=== PATIENT | female | born 1965 | race Caucasian/White ===

== ENCOUNTER 2016-12-05 07:34 | Day surgery (SDC) | payer BC ==
--- NOTE | ~2016-12-05 | EGD ---
EGD REPORT [facility] [address] [address] NAME: MARIANNE STROUD : 61 STATUS : REG [facility]#: [id number] AGE: 51 ADM/REG DATE : 12/05/16 MR#: [id number] REPORT SERV DATE: 12/05/16 DICTATED BY: LIAM ZIMMERMAN DATE: 12/05/16 REPORT STATUS : Draft TRANSCRIBED BY: [facility] DATE: 12/05/16 Endoscopy Center Patient Name: Marianne Stroud Date of : 1965 Attending MD: LIAM ZIMMERMAN MD Procedure Date No Time: 12/05/2016 Procedure: Upper GI endoscopy Indications: Epigastric abdominal pain, Nausea Referring MD: BRUCE MCCOLLUM MD Medicines: See the Anesthesia note for documentation of the administered medications Complications: No immediate complications. Procedure: Pre-Anesthesia Assessment: - ASA Grade Assessment: III - A patient with severe systemic disease. After obtaining informed consent, the endoscope was passed under direct vision. Throughout the procedure, the patient's blood pressure, pulse, and oxygen saturations were monitored continuously. The [facility] [id number] was introduced through the mouth, and advanced to the second part of duodenum. The upper GI endoscopy was accomplished without difficulty. The patient tolerated the procedure well. Findings: The 2nd part of the duodenum was normal. Biopsies were taken with a cold forceps for histology. Mild inflammation was found in the gastric antrum. Biopsies were taken with a cold forceps for histology. The cardia and gastric fundus were normal on retroflexion. Nodularity at GE Junction, Biopsies were taken with a cold forceps for histology. A small hiatus hernia was present. Ringed esophagus, Biopsies were taken with a cold forceps for histology in mid esophagus. Impression: - Normal 2nd part of the duodenum. Biopsied. - Gastritis. Biopsied. - Nodularity at GE Junction - Hiatus hernia. - Ringed esophagus Recommendation: - Patient has a contact number available for emergencies. The signs and symptoms of potential delayed complications were discussed with the patient. Return to EGD REPORT [address] [place]. [address] NAME: MARIANNE STROUD : 61 STATUS : REG [facility] PAT#: [id number] AGE: 51 ADM/REG DATE : 12/05/16 MR#: [id number] REPORT SERV DATE: 12/05/16 DICTATED BY: LIAM ZIMMERMAN DATE: 12/05/16 REPORT STATUS : Draft TRANSCRIBED BY: SEAT 4a DATE: 12/05/16 normal activities tomorrow. Written discharge instructions were provided to the patient. - Regular diet. - Continue present medications. - FOR YOUR BIOPSY RESULTS: Please go to [email or web address] and register to receive your results via the portal. Your biopsy results will be posted there in about 7 to 10 days. IF you do not see result in 10 days, call office. - Follow up with Dr Zimmerman or his nurse practitioner in 6 weeks Procedure Code(s): --- Professional --- 56284, Esophagogastroduodenoscopy, flexible, transoral; with biopsy, single or multiple Diagnosis Code(s): --- Professional --- K29.70, Gastritis, unspecified, without bleeding K44.9, Diaphragmatic hernia without obstruction or gangrene R10.13, Epigastric pain R11.0, Nausea CPT copyright 2013 [employer]. All rights reserved. The codes documented in this report are preliminary and upon certified medical records coder review may be revised to meet current compliance requirements. Liam Zimmerman MD LIAM ZIMMERMAN MD 12/05/2016 8:49 AM This report has been signed electronically. Number of Addenda: 0 Note Initiated On: 12/05/2016 8:31 AM Scope Withdrawal Time 0 hours 0 minutes 0 seconds [id number] [id number]
[~2016-12-05 07:34] MED LIST: ACET500CAP PO; ADVIL PO; ESTRA/NORETH1 TAB OR; GLUCOPHAGE1000 MG; GLUCOPHAGE1000 MG PO; GLUCOTRO10 PO; HEMOCYTE324 MG PO; IRON325 MG PO; JANUVIA100 MG PO; LEXAPRO5 MG PO; LOTENSIN HCT1 TA2 PO; LOTENSIN HCT1 TA3 PO; MOBIC15 MG PO; MOBIC7.5 PO; MULTIVIT/MIN PO; MULTIVITAMI1 PO; PROTONIX PO; SYN1 PO; TIMOLOL MAL0.25 % OPH; ULTRAM50 PO
== END 2016-12-05 23:59 | disposition home or self-care (01) ==
LOC: DMU 07:34
PROVIDERS: Internal Medicine Gastroenterology
PROC: 0DB58ZX Excision of Esophagus, Via Natural or Artificial Opening Endoscopic, Diagnostic (ICD-10-PCS; 2016-12-05)
PROC: 0DB68ZX Excision of Stomach, Via Natural or Artificial Opening Endoscopic, Diagnostic (ICD-10-PCS; 2016-12-05)
PROC: 0DB98ZX Excision of Duodenum, Via Natural or Artificial Opening Endoscopic, Diagnostic (ICD-10-PCS; principal; 2016-12-05 09:00)
DX: K29.50 Unspecified chronic gastritis without bleeding (principal); K44.9 Diaphragmatic hernia without obstruction or gangrene; I10 Essential (primary) hypertension; G47.30 Sleep apnea, unspecified; E11.9 Type 2 diabetes mellitus without complications; E03.9 Hypothyroidism, unspecified; M19.90 Unspecified osteoarthritis, unspecified site; Z96.653 Presence of artificial knee joint, bilateral; Z90.710 Acquired absence of both cervix and uterus; Z90.49 Acquired absence of other specified parts of digestive tract
CPT/HCPCS: 82962; 88305; A9270-GY; J2405

== ENCOUNTER 2016-12-18 13:29 | Observation (INO) | payer BC ==
--- NOTE | ~2016-12-18 | HP ---
History And Physical [id number] [facility] [place]. [address] NAME: MARIANNE LEVINE : [birth year] STATUS : ADM [facility] PAT#: [id number] AGE: 51 ADM/REG DATE : 12/18/16 MR#: [id number] REPORT SERV DATE: 12/19/16 DICTATED BY: HALIMA MADRID DATE: 12/19/16 REPORT STATUS : Draft TRANSCRIBED BY: MODL DATE: 12/19/16 DATE OF ADMISSION: 12/18/2016 CHIEF COMPLAINT: Chest pain. HISTORY OF PRESENT ILLNESS: This is a pleasant 51-year-old white female with a history of hypertension, diabetes mellitus type 2, along with celiac disease, and gastritis. She recently underwent an endoscopy with Dr. Zimmerman on 12/05/2016, at which time she was diagnosed with gastritis, GE junction nodularity, hiatal hernia, and ringed esophagus. She is to follow up in six weeks after that time with Dr. Zimmerman and take a PPI. She presented to the emergency department yesterday with precordial chest pain that occurred on Friday and again yesterday. This is vague chest pain that occurred at rest. It did radiate down her left arm. She reports this is associated with dyspnea, nausea, and diaphoresis. She has been chest pain free since prior to emergency department. She denies any exertional component to her symptoms. She denies any edema or palpitations. She reports she most recently had a stress test on 01/2014, which was normal, this was during a hospitalization for chest pain. PAST MEDICAL HISTORY: 1. Hypertension. 2. Diabetes mellitus type 2. 3. Obesity. 4. Hypothyroidism. 5. Untreated obstructive sleep apnea (the patient told that this may not need to be treated as she is in the process of losing weight). 6. Celiac disease. 7. Endometriosis. 8. Anemia. 9. Gastritis, ringed esophagus, nodularity at GE junction and hiatal hernia, all on EGD 12/05/[address] Zimmerman. 10.Arthritis. 11.Tongue lesion. PAST SURGICAL HISTORY: 1. Maxillofacial surgery, 1979. 2. Left ovarian cyst, 2000. 3. Laparoscopic cholecystectomy, 2010. 4. Left oophorectomy, 2013. 5. Wire removal from mandible, 2013. 6. Bilateral total knee arthroplasty, 06/2015. SOCIAL HISTORY: . Works as a clerical secretary. She denies any tobacco, alcohol, or illicit drug use. FAMILY HISTORY: Father with cancer and possibly a "heart issue." She does not have any History And Physical [address] [place]. [address] NAME: MARIANNE LEVINE : [birth year] STATUS : ADM Arsh PAT#: [id number] AGE: 51 ADM/REG DATE : 12/18/16 MR#: [id number] REPORT SERV DATE: 12/19/16 DICTATED BY: HALIMA MADRID DATE: 12/19/16 REPORT STATUS : Draft TRANSCRIBED BY: ZEB DATE: 12/19/16 further details. REVIEW OF SYSTEMS: As above per HPI, all other systems reviewed and negative. ALLERGIES: NO KNOWN DRUG ALLERGIES. HOME MEDICATIONS: List reviewed and is as follows: 1. Synthroid 100 mcg p.o. daily. 2. Metformin 1000 mg p.o. twice per day. 3. Glipizide 10 mg p.o. twice per day. 4. Januvia 100 mg p.o. daily. 5. Lexapro 5 mg p.o. every day at bedtime. 6. Benazepril and HCTZ 20/12.5 mg tablet one tablet p.o. daily. 7. Acetaminophen two tablets p.o. daily as needed. PHYSICAL EXAMINATION: VITAL SIGNS: Oxygen saturation 96% on room air. Height 4 feet and 11-3/4 inches, weight 200 pounds, and body mass index 39.4. She does note that she has doubled the breast cup size. Temperature 97.5, pulse 86, respiratory rate 20, blood pressure initially 153/91, most recently 126/63. GENERAL: Well-developed, well-nourished. Obese. In no apparent distress. HEENT: Head normocephalic. No xanthelasma. Sclera clear, anicteric. Moist mucous membranes without pallor. No lymphadenopathy. No deficits noted. NECK: Trachea midline. Supple. No thyromegaly, JVD, or bruits. RESPIRATORY: Unlabored respirations. Breath sounds clear bilaterally to posterior auscultation. No wheezes, rhonchi or crackles. CARDIOVASCULAR: Regular rate and rhythm. No murmur, rub, or gallop appreciated. No chest wall tenderness to palpation. ABDOMEN: Soft, nontender, and nondistended. Active bowel sounds auscultated x4 quadrants. No organomegaly and no masses. No aortic bruit. EXTREMITIES: DP/PT and radial pulses 2+ bilaterally. No clubbing, cyanosis, or edema. SKIN: Warm, dry, intact. No rash. Normal turgor. MUSCULOSKELETAL: Moves all extremities in bed without difficulty. NEURO/PSYCH: Alert and oriented x3 with no acute distress. Affect appropriate to current situation. LABORATORY DATA: BMP: Sodium 138, potassium 3.7, creatinine 0.66, glucose was elevated at 217. Magnesium 1.7. CBC: White blood cell count 8.1, hemoglobin 13.9, hematocrit 40.1, platelets 337. Troponin less than 0.02 x2. STUDIES: Chest x-ray: Lungs clear. Heart size normal. Question of safety pin in anterior chest wall. My addendum, please note that the patient reports that this safety pin was located on her bra. History And Physical [address] [address] NAME: MARIANNE LEVINE : 61 STATUS : ADM [facility] PAT#: [id number] AGE: 51 ADM/REG DATE : 12/18/16 MR#: [id number] REPORT SERV DATE: 12/19/16 DICTATED BY: HALIMA MADRID DATE: 12/19/16 REPORT STATUS : Draft TRANSCRIBED BY: ZEB DATE: 12/19/16 EKG: Personally interpreted, normal sinus rhythm, with no ischemia. Telemetry: Sinus rhythm. ASSESSMENT AND PLAN: 1. Substernal/precordial chest pain. Two negative troponins with EKG benign. I planned a cardiac PET given cardiac risk factors of hypertension, diabetes mellitus type 2, obesity. PET modality chosen because she does have doubled the breast size. If the stress test is low risk with no ischemia, then RN is to discharge the patient to home. She is to follow up with her primary care provider, Dr. Hernandez, in one week. 2. Hypertension. We will continue her blood pressure medications here. Her blood pressure was mildly elevated upon arrival. She reports it is better controlled at home. She will buy a blood pressure cuff after conferring with the patient. She will check her blood pressure daily, record, bring to PCP and follow up in one week. I defer any adjustment to medications to PCP. 3. Diabetes mellitus type 2. I will give sliding scale insulin level 1 while here. 4. Obesity. Continue weight loss. The patient reports she is attempting to lose weight at this time. 5. Gastritis. Follow up with Dr. Zimmerman. She has a followup appointment at approximately three weeks already scheduled post recent EGD on 12/05/2016. 6. Possible obstructive sleep apnea. I advised her to discuss further with her primary care provider as she was told that she might not need CPAP as she is losing weight. I did discuss the correlation with untreated sleep apnea and cardiovascular health including high blood pressure. The patient will be seen down in the stress testing area by rounding inventory control/shipping receiving for CPOU. JULIA/GAYATRIL Halima [place] NP / [id number] CC: Marianne Soares, MSN, AUTOMOTIVE PROJECT ENGINEER-BC Ruthie Hernandez M.D. Jason Zimmerman M.D.
[2016-12-18 14:03] LABS: BASOPHILS 0.1 %; BASOPHILS ABSOLUTE 0.01 10/3/uL (0.0-0.16); EOSINOPHILS 1.2 %; ER CBC TAT 0 Hrs 05 Mins; HEMATOCRIT 40.1 % (36.0-48.0); HEMOGLOBIN 13.9 g/dL (12.0-16.0); IMMATURE GRANULOCYTES 0.2 %; IMMATURE GRANULOCYTES ABSOLUTE 0.02 10/3/uL (0.0-0.11); LYMPHOCYTES 42.6 %; LYMPHOCYTES ABSOLUTE 3.43 10/3/uL (0.67-4.30); MEAN CORPUS HGB CONC 34.7 g/dL (32.0-36.0); MEAN CORPUSCULAR HEMOGLOB 30.5 pg (26.0-34.0); MONOCYTES 8.7 %; NEUTROPHILS 47.2 %; PLATELET COUNT 337 10/3/uL (150-400); RBC DISTRIBUTION WIDTH 12.8 % (12.0-16.0); RED CELL COUNT 4.56 10/6/uL (4.0-5.6); WHITE BLOOD CELLS 8.1 10/3/uL (4.5-10.5)
[2016-12-18 14:04] LABS: MANUAL DIFF NO %; MEAN CORPUSCULAR VOLUME 87.9 fL (80-100)
[2016-12-18 14:10] LABS: PROTIME (NOT ORD) 13.2 SEC (12.0-14.5)
[2016-12-18 14:17] LABS: BUN (BLOOD UREA NITROGEN) 10 MG/DL (6-23); CALCIUM, SERUM 9.9 MG/DL (8.5-10.4); CHEST PAIN PROFILE TAT 0 Hrs 19 Mins; CHLORIDE, SERUM 101 MMOL/L (96-112); CO2 (CARBON DIOXIDE) 26 MMOL/L (24-34); CREATININE 0.66 MG/DL (0.55-1.02); GFR AFRICAN AMERICAN 117 ML/MIN (>=60); GFR NON AFRICAN AMERICAN 101 ML/MIN (>=60); GLUCOSE, SERUM 217 MG/DL (60-99); POTASSIUM, SERUM 3.7 MMOL/L (3.5-5.3); SODIUM, SERUM 138 MMOL/L (135-148); TROPONIN I <0.02 NG/ML (<0.05)
[2016-12-18] MEDS ORDERED: ACET500CAP PO (20:00)
[2016-12-18] MEDS ORDERED: LOTENSIN HCT1 TA2 PO (20:00)
== END 2016-12-19 14:40 | disposition home or self-care (01) ==
LOC: ER 13:29 → SSU2 20:20
PROVIDERS: Emergency Medicine
DX: R07.9 Chest pain, unspecified (principal); I10 Essential (primary) hypertension; E11.9 Type 2 diabetes mellitus without complications; E66.9 Obesity, unspecified; E03.9 Hypothyroidism, unspecified; G47.33 Obstructive sleep apnea (adult) (pediatric); N80.9 Endometriosis, unspecified; K90.0 Celiac disease; D64.9 Anemia, unspecified; M19.90 Unspecified osteoarthritis, unspecified site; K29.70 Gastritis, unspecified, without bleeding
CPT/HCPCS: 71020; 78492; 80048; 82962; 83735; 84484; 85025; 85610; 85730; 93005; 93017; 99285; A9270-GY; A9555; G0378; J2785

== ENCOUNTER 2017-03-11 14:57 | Inpatient (IN) | payer BC ==
--- NOTE | ~2017-03-11 | OP ---
Record Of Operation [facility] [address] [place]. [address] NAME: LINDA LEVINE : 61 STATUS : ADM IN PAT#: [id number] AGE: 52 ADM/REG DATE : 03/11/17 MR#: [id number] REPORT SERV DATE: 03/13/17 DICTATED BY: NATALIO GOTTLIEB DATE: 03/13/17 REPORT STATUS : Draft TRANSCRIBED BY: MODPacheco DATE: 03/13/17 DATE OF PROCEDURE: 03/12/2017 PREOPERATIVE DIAGNOSES: Left knee hypertrophic synovium, questionable loose tibia. 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 PROCEDURE: Left total knee revision arthroplasty and complete synovectomy OUTSOLE CUTTER MACHINE: See chart. PROCEDURE IN DETAIL: The patient was taken to the operating room and placed supine on the table in normal fashion without incident. Spinal anesthetic was induced per the anesthesiologist and later became LMA. The left lower extremity was exsanguinated after sterile prep and drape. Tourniquet was inflated to 350. Sharp dissection was made through the old incision with electrocautery through the fat. Sharp quad-splitting approach was carried out. The patella was subluxed. Benign-appearing fluid was sent for cultures and Gram stain. Complete synovectomy was performed and what appeared to be an aseptic hypertrophic synovial reaction. The patella was seen to be just about loose. The tibial component was also loose. Femoral component had erosion between the cement and the bone. All components were removed with osteotomes. There was minimal bone loss. The cement was meticulously debrided. Sequential reamers were used in the femur and tibia to a 14 intramedullary guide, used to cut the proximal tibia and distal femur. A ruler was used to verify flexion and extension balance. The remaining cuts were used with an intramedullary guide on the femur. Granulation osteolytic tissue was meticulously debrided with a curette and rongeur. The patella was removed with an osteotome and cut with a saw and re-drilled with the patella drill guide. With trial components in place, there was excellent medial and lateral balance and excellent flexion and extension balance. All surfaces were copiously irrigated with pulsatile lavage. Vacuum-mixed cement premixed with antibiotic was pressurized in a doughy phase in the tibia. Tibial component placed, impacted, and excess cement removed. The cement was pressurized in the femur and placed on the posterior runners of the femoral component, which was placed, impacted, and excess cement removed. Knee was brought out in extension on a trial spacer. The cement was pressurized in patella. Patellar component placed, held with a clamp, and excess cement removed. Once all cement was hardened, the knee was taken to range of motion. Further extruded cement was removed with a small osteotome. The actual insert was then placed, impacted, checked to be sure it was sound and snug. The knee was taken through a full range of motion with excellent medial and lateral balance and excellent flexion and extension balance. The wound was closed in a layered fashion and dressed sterilely. The patient was awakened and taken to the postanesthesia care unit without incident. COMPLICATIONS: None. SPECIMENS: Complete synovium and cultures. Record Of Operation [id number] [facility] [place]. [address] NAME: LINDA LEVINE : 61 STATUS : ADM IN PAT#: [id number] AGE: 52 ADM/REG DATE : 03/11/17 MR#: [id number] REPORT SERV DATE: 03/13/17 DICTATED BY: NATALIO GOTTLIEB DATE: 03/13/17 REPORT STATUS : Draft TRANSCRIBED BY: ZEB DATE: 03/13/17 ESTIMATED BLOOD LOSS: Trace. WTB/ZEB Nadine Gottlieb M.D. / [id number] CC: Enrike Newton M.D.
--- NOTE | ~2017-03-11 | DS ---
Discharge Summary [facility] [address] [place]. [address] NAME: LINDA LEVINE : 61 STATUS : DIS IN PAT#: [id number] AGE: 52 ADM/REG DATE : 03/11/17 MR#: [id number] REPORT SERV DATE: 03/27/17 DICTATED BY: NATALIO GOTTLIEB DATE: 03/27/17 REPORT STATUS : Draft TRANSCRIBED BY: ZEB DATE: 03/27/17 Data Collection from hospitalization DISCHARGE DIAGNOSES: 1. 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 2. Diabetes. 3. Hypertension. 4. Obstructive sleep apnea. 5. Hypothyroidism. CONSULTATIONS: None. PROCEDURES PERFORMED: Left total knee revision arthroplasty and complete synovectomy on 03/12/2017. 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 Bone and soft tissue, left knee - chronic active synovitis bone with extensive medullary fibrosis and extensive histiocytic granuloma. Orthopedic hardware, left knee. MEDICATIONS: Lotensin one tablet daily, vitamin D 1000 units daily, vitamin B12 1000 mcg daily, Lexapro 5 mg daily, Glucotrol 10 mg twice a day, Dilaudid 2-4 mg every four hours as needed, levothyroxine 100 mcg daily, Glucophage 1000 mg with breakfast and supper, Januvia 100 mg daily, and Coumadin 4 mg daily. CONDITION AT DISCHARGE: Stable. DISPOSITION: The patient was discharged home on an 1800-calorie diabetic diet with activities as instructed. She would follow up with me two weeks following discharge. She would [facility] at [facility] [place] for physical therapy and lab work on 03/17/2017. HOSPITAL COURSE: This is a 52-year-old female who was seen in the clinic following bilateral total knee arthroplasty, this was performed in 2014. The patient was found to have left knee hypertrophic synovitis and early aseptic loosening of the tibia, femur, and patella. Treatment options were discussed and it was elected to proceed with surgical intervention. She was admitted to the hospital at this time for further evaluation and treatment. Upon admission, she was taken to the operating room where she underwent the above-mentioned procedure. She tolerated this well, and there were no complications. On postop day #1, she was doing well. She complained that her pain medication made her itch. TERRY hose were in place. Benazepril was continued as well as alogliptin, glipizide and sliding scale insulin level 2. Synthroid and Lexapro were continued as well. Discharge planning was performed. On 03/14/2017, she was ambulating with Physical Therapy. She did complain of knee pain. Discharge instructions were given. She had been evaluated by Occupational and Physical Therapy. Due to her improved and stable condition, she was discharged home with the above- stated instructions. Discharge Summary [id number] [place]. [address] NAME: LINDA LEVINE : 61 STATUS : DIS IN PAT#: [id number] AGE: 52 ADM/REG DATE : 03/11/17 MR#: [id number] REPORT SERV DATE: 03/27/17 DICTATED BY: NATALIO GOTTLIEB DATE: 03/27/17 REPORT STATUS : Draft TRANSCRIBED BY: ZEB DATE: 03/27/17 Information collected by: Corrine Samaniego I submit the above information as my discharge summary. DIMITRI/ZEB Nadine Gottlieb M.D. / [id number] CC: Enrike Newton M.D.
[2017-03-11 16:44] LABS: BASOPHILS 0.1 %; BASOPHILS ABSOLUTE 0.01 10/3/uL (0.0-0.16); EOSINOPHILS 1.5 %; EOSINOPHILS ABSOLUTE 0.13 10/3/uL (0.0-0.53); HEMATOCRIT 37.6 % (36.0-48.0); HEMOGLOBIN 12.6 g/dL (12.0-16.0); IMMATURE GRANULOCYTES 0.2 %; IMMATURE GRANULOCYTES ABSOLUTE 0.02 10/3/uL (0.0-0.11); LYMPHOCYTES 31.3 %; LYMPHOCYTES ABSOLUTE 2.73 10/3/uL (0.67-4.30); MEAN CORPUS HGB CONC 33.5 g/dL (32.0-36.0); MEAN CORPUSCULAR HEMOGLOB 29.4 pg (26.0-34.0); MEAN CORPUSCULAR VOLUME 87.9 fL (80-100); MEAN PLATELET VOLUME 9.4 fL (9.2-13.0); MONOCYTES 9.9 %; MONOCYTES ABSOLUTE 0.86 10/3/uL (0.21-1.20); NEUTROPHILS ABSOLUTE 4.97 10/3/uL (2.02-8.40); PLATELET COUNT 351 10/3/uL (150-400); RED CELL COUNT 4.28 10/6/uL (4.0-5.6); WHITE BLOOD CELLS 8.7 10/3/uL (4.5-10.5)
[2017-03-11 16:45] LABS: MANUAL DIFF NO %
[2017-03-11 16:50] LABS: PROTIME (NOT ORD) 13.4 SEC (12.0-14.5)
[2017-03-11 16:59] LABS: A/G RATIO 0.8 (0.7-1.9); ALBUMIN 3.3 G/DL (3.5-5.0); ALKALINE PHOSPHATASE 92 U/L (45-117); BUN (BLOOD UREA NITROGEN) 8 MG/DL (6-23); CALCIUM, SERUM 9.3 MG/DL (8.5-10.4); CHLORIDE, SERUM 99 MMOL/L (96-112); CO2 (CARBON DIOXIDE) 24 MMOL/L (24-34); CREATININE 0.86 MG/DL (0.55-1.02); GFR AFRICAN AMERICAN 89 ML/MIN (>=60); GFR NON AFRICAN AMERICAN 77 ML/MIN (>=60); POTASSIUM, SERUM 3.6 MMOL/L (3.5-5.3); SGOT(AST) 40 U/L (5-40); SGPT(ALT) 66 U/L (5-65); SODIUM, SERUM 135 MMOL/L (135-148); TOTAL BILIRUBIN 0.2 MG/DL (0-1.2); TOTAL PROTEIN 7.6 G/DL (6.0-8.5)
[2017-03-11 17:01] LABS: GLOBULIN 4.3 G/DL (2.5-4.1); GLUCOSE, SERUM 302 MG/DL (60-99)
[2017-03-11] MEDS ORDERED: GLUCOTRO10 PO (21:51)
[2017-03-11] MEDS ORDERED: LEVOTHYROXIN100 MCG PO (21:51)
[2017-03-11] MEDS ORDERED: LOTENSIN HCT1 TA2 PO (21:51)
[2017-03-11] MEDS ORDERED: GLUCOPHAGE1000 MG PO (21:51)
[2017-03-11] MEDS ORDERED: CYANO1000T PO (21:52)
[2017-03-11] MEDS ORDERED: LEXAPRO5 MG PO (21:52)
[2017-03-11] MEDS ORDERED: VITAMIN D1000 UNI1 PO (21:52)
[2017-03-11] MEDS ORDERED: JANUVIA100 MG PO (21:52)
[2017-03-13 05:32] LABS: HEMOGLOBIN 10.8 g/dL (12.0-16.0)
[2017-03-13 05:39] LABS: INTERNATIONAL NORMAL RATI 1.2 UNITS (-); PROTIME (NOT ORD) 14.6 SEC (12.0-14.5)
[2017-03-13 05:41] LABS: HEMATOCRIT 32.9 % (36.0-48.0)
[2017-03-13 05:49] LABS: BUN (BLOOD UREA NITROGEN) 13 MG/DL (6-23); CALCIUM, SERUM 8.2 MG/DL (8.5-10.4); CHLORIDE, SERUM 106 MMOL/L (96-112); CO2 (CARBON DIOXIDE) 28 MMOL/L (24-34); CREATININE 0.68 MG/DL (0.55-1.02); GFR AFRICAN AMERICAN 115 ML/MIN (>=60); GFR NON AFRICAN AMERICAN 99 ML/MIN (>=60); GLUCOSE, SERUM 205 MG/DL (60-99); POTASSIUM, SERUM 4.3 MMOL/L (3.5-5.3); SODIUM, SERUM 140 MMOL/L (135-148)
[2017-03-14 04:08] LABS: HEMATOCRIT 31.4 % (36.0-48.0); HEMOGLOBIN 10.3 g/dL (12.0-16.0)
[2017-03-14 04:17] LABS: INTERNATIONAL NORMAL RATI 1.6 UNITS (-); PROTIME (NOT ORD) 18.6 SEC (12.0-14.5)
[2017-03-14] MEDS ORDERED: COUMADIN4 MG PO (11:33)
[2017-03-14] MEDS ORDERED: DIL2TAB PO (11:34)
== END 2017-03-14 14:54 | disposition home or self-care (01) | DRG 468 ==
LOC: 3SO 14:57
PROVIDERS: Specialist
PROC: 0SRD0JZ Replacement of Left Knee Joint with Synthetic Substitute, Open Approach (ICD-10-PCS; principal; 2017-03-11)
PROC: 0SPD0JZ Removal of Synthetic Substitute from Left Knee Joint, Open Approach (ICD-10-PCS; 2017-03-11)
PROC: 0SBD0ZZ Excision of Left Knee Joint, Open Approach (ICD-10-PCS; 2017-03-11)
DX: T84.033A Mechanical loosening of internal left knee prosthetic joint, initial encounter (principal); T84.54XA Infection and inflammatory reaction due to internal left knee prosthesis, initial encounter; E11.9 Type 2 diabetes mellitus without complications; I10 Essential (primary) hypertension; G47.33 Obstructive sleep apnea (adult) (pediatric); E03.9 Hypothyroidism, unspecified; M65.862 Other synovitis and tenosynovitis, left lower leg; F32.9 Major depressive disorder, single episode, unspecified; Y79.2 Prosthetic and other implants, materials and accessory orthopedic devices associated with adverse incidents; Y83.8 Other surgical procedures as the cause of abnormal reaction of the patient, or of later complication, without mention of misadventure at the time of the procedure; Z79.84 Long term (current) use of oral hypoglycemic drugs
CPT/HCPCS: 71010; 80048; 80053; 82962; 85014; 85018; 85025; 85610; 87015; 87070; 87075; 87102; 87116; 87205; 87641; 88300; 88304; 88311; 93005; 97110-GP; 97116-GP; 97150-GP; 97161-GP; 97165-GO; A9270-GY; C1776; J0690; J1885; J2250; J2270; J2370; J2405; J2550; J2795; J3010; J3370